=== PATIENT | male | born 1975 | race Caucasian/White ===

== ENCOUNTER → 2020-07-19 12:00 | Outpatient (CLI) | payer OTHER, SELFPAY ==
--- NOTE | ~2020-07-19 | MR_ITS ---
EXAMINATION: MR cervical spine wo con DATE: 07/19/2020 12:57 INDICATION: Cervical radiculopathy. TECHNIQUE: Magnetic resonance imaging (MRI) of the cervical spine was performed without intravenous c ontrast. Sequences included sagittal T2-weighted FSE, sagittal STIR FSE, sagittal T1-weighted FSE, ax ial MERGE, and axial T2-weighted FSE. COMPARISON: None FINDINGS: There is 5 degrees levocurvature of cervicothoracic spine. Vertebral body heights are lottie l. There is moderately decreased disc height at C6-C7. The spinal cord signal intensity is normal. Th e following disc levels are specifically discussed: C2-C3: The disc is bulging. There is mild left uncovertebral joint osteoarthritis. There is mild righ t and moderate left facet joint osteoarthritis. There is mild left neural foraminal stenosis. There i s no central canal stenosis. C3-C4: The disc is bulging. There is moderate right and mild left uncovertebral joint osteoarthritis. There is mild right and moderate left facet joint osteoarthritis. There is mild bilateral neural for aminal stenosis. There is mild central canal stenosis. C4-C5: The disc does not extend beyond the endplate margin. There is moderate left uncovertebral join t osteoarthritis. There is mild bilateral facet joint osteoarthritis. There is mild left neural zo inal stenosis. There is no central canal stenosis. C5-C6: The disc is bulging. There is mild bilateral uncovertebral joint osteoarthritis. There is mild bilateral facet joint osteoarthritis. There is mild bilateral neural foraminal stenosis. There is mi ld central canal stenosis. C6-C7: The disc is bulging. There is moderate right and severe left uncovertebral joint osteoarthriti s. There is mild bilateral facet joint osteoarthritis. There is mild right and moderate left neural f oraminal stenosis. There is mild central canal stenosis. C7-T1: The disc does not extend beyond the endplate margin. There is no uncovertebral joint osteoarth ritis. There is moderate right and severe left facet joint osteoarthritis. There is mild bilateral ne ural foraminal stenosis. There is no central canal stenosis. IMPRESSION: 1. Moderate cervical spondylosis. Reviewed, dictated and finalized at location A. OR [employer]
== END ==
PROVIDERS: Visit Provider Chiropractor
DX: M47.23 Other spondylosis with radiculopathy, cervicothoracic region (principal); M48.03 Spinal stenosis, cervicothoracic region
CPT/HCPCS: 72141

== ENCOUNTER 2022-11-12 08:07 | Emergency (ER) | payer OTHER, SELFPAY ==
--- NOTE | 2022-11-12 08:15 | ED.EXTPRO ---
HPI - Extremity Problem General Chief complaint: Extremity Problem,Nontraumatic Stated complaint: SWOLLEN AREA ON TOE Time Seen by Provider: 11/12/22 08:23 Source: patient and RN notes reviewed Mode of arrival: ambulatory Limitations: no limitations History of Present Illness HPI Narrative: 47-year-old male presents with concern for swelling on the 1st digit of the left foot. He reports noticing symptoms about a week ago. He was concern for a spider bite or infection. He reports the tip of his toe is very slightly tender and feels like ?it is asleep?. He denies injury or trauma. He reports low back pain, hip pain after recently starting taking a statin. He reports he has not been taking any anti-inflammatories because his blood pressures been high. MD Complaint: extremity swelling Related Data Home Medications Medication Instructions Recorded Confirmed losartan 50 mg tablet mg 11/12/22 methylphenidate HCl 20 mg biphasic mg PO 11/12/22 30-70 capsule,extended release rosuvastatin 5 mg tablet mg 11/12/22 venlafaxine 150 mg mg PO 11/12/22 capsule,extended release 24 hr Allergies Allergy/AdvReac Type Severity Reaction Status Date / Time Sulfa (Sulfonamide Allergy Unknown Rash Verified 11/12/22 08:17 Antibiotics) Review of Systems Review of Systems: CONSTITUTIONAL: Denies malaise, chills, sweats, or fever. EYES: Denies redness, or discharge. ENT: Denies rhinorrhea, congestion, swollen lips, swollen tongue CARDIOVASCULAR: Denies chest pain, palpitations, or edema. RESPIRATORY: Denies cough or dyspnea. GASTROINTESTINAL: Denies abdominal pain, nausea, vomiting SKIN: Reports redness and swelling of the 1st digit of the left foot MUSCULOSKELETAL: Reports joint pain NEUROLOGIC: Denies headache. All systems reviewed & are unremarkable except as noted in HPI and below PMFSH Social History Social History Smoking status: Never smoker Alcohol intake: current Comments At time of signature, agree with nursing past medical, surgical, social and family history. There is no relevant family history pertinent to the presenting complaint Exam Narrative: GENERAL: Well-appearing, well-nourished, and in no acute distress. HEAD: Normocephalic, atraumatic. EYES: PERRLA, conjunctivae clear, and EOMI. ENT: Mucous membranes moist. NECK: Supple. No lymphadenopathy CHEST: Clear to auscultation. No respiratory distress. HEART: Regular rate and rhythm. SKIN: Warm, dry. Tip of the 1st digit of the left foot is very mildly erythematous, without edema, no fluctuation, of very mild tenderness. No swelling, fluctuation, redness noted around the nail bed. The rest of the foot is unremarkable NEURO: Alert and oriented x3. PSYCH: Normal mood and affect Course Course Emergency Course: Discussed with patient that his exam is not concerning for infection, insect bite. His tingling might be related to his proximal joint pain. Advised to follow up with his primary care doctor Patient is aware of diagnosis, understands and agrees to treatment plan. Anticipatory guidance given. Patient agrees to follow-up as directed and is aware of reasons to seek care at the emergency department. Portions of this record may have been created with voice recognition software Level of Care: Express Care Visit Vital Signs Vital signs: Reviewed. Critical Care Time Critical Care Time Critical Care Time: No Discharge Plan Discharge Clinical Impression: Discoloration of skin Patient Disposition: Home, Self-Care Condition: Stable Instructions: Warm Compress or Soak (ED) Additional Instructions: Soak your foot and a mixture of warm water and Epsom salt or apple cider vinegar. If you notice swelling, redness, pain worsening you should return or see her primary for re-evaluation. At this time I am not concerned for infection or an insect bite. If the numbness sensation continues used follow-up with your primary care doctor for fu
[2022-11-12 08:17] VITALS: BP 146/110; PULSE 84; RESP 16; TEMP 36.7; O2SAT 100
== END 2022-11-12 08:42 | disposition home or self-care (01) ==
PROVIDERS: Emergency Provider Nurse Practitioner; PCP Family Medicine Sports Medicine
DX: L81.9 Disorder of pigmentation, unspecified (principal); E78.00 Pure hypercholesterolemia, unspecified; I10 Essential (primary) hypertension; F41.9 Anxiety disorder, unspecified; F98.8 Other specified behavioral and emotional disorders with onset usually occurring in childhood and adolescence
CPT/HCPCS: 99202; G0463

== ENCOUNTER 2023-07-21 10:13 | Emergency (ER) | payer OTHER, SELFPAY ==
[2023-07-21 10:21] VITALS: BP 120/91; PULSE 116; RESP 18; TEMP 36.4; O2SAT 100
--- NOTE | 2023-07-21 10:34 | ED.URI ---
HPI - URI/Sore Throat General Chief Complaint: Upper Respiratory Infection Stated Complaint: Sinus Infection Time Seen by Provider: 07/21/23 10:54 Source: patient and RN notes reviewed Mode of arrival: ambulatory Limitations: no limitations History of Present Illness HPI Narrative: 48-year-old male presents with concern for 5 day history of sinus congestion, drainage, chest congestion, chills. He reports he tried Sudafed today. He denies known sick contacts. He denies shortness of breath, fever MD elicited complaint: rhinorrhea and nasal congestion Related Data Home Medications Medication Instructions Recorded Confirmed methylphenidate HCl 20 mg biphasic 20 mg PO DAILY 11/12/22 07/21/23 30-70 capsule,extended release venlafaxine 150 mg 150 mg PO DAILY 11/12/22 07/21/23 capsule,extended release 24 hr Allergies Allergy/AdvReac Type Severity Reaction Status Date / Time Sulfa (Sulfonamide Allergy Intermediate Swelling Verified 07/21/23 10:47 Antibiotics) of Lip/Tongue/Throat Review of Systems Review of Systems: CONSTITUTIONAL: Denies malaise, chills. Denies sweats, or fever. EYES: Denies visual changes, redness, or discharge. ENT: Reports rhinorrhea, congestion, otalgia and sore throat. CARDIOVASCULAR: Denies chest pain, palpitations, or edema. RESPIRATORY: Reports occasion cough. Denies dyspnea. GASTROINTESTINAL: Denies abdominal pain, nausea, vomiting, diarrhea SKIN: Denies rash or itching. MUSCULOSKELETAL: Denies myalgia. NEUROLOGIC: Denies headache. All systems reviewed & are unremarkable except as noted in HPI and below PMFSH Social History Social History Smoking status: Never smoker Alcohol intake: current Comments At time of signature, agree with nursing past medical, surgical, social and family history. There is no relevant family history pertinent to the presenting complaint Exam Narrative: GENERAL: Nontoxic-appearing and in no acute distress. HEAD: Normocephalic EYES: PERRLA, conjunctivae clear ENT: Nares clear, clear discharge. Mucous membranes moist. TM pearly potts with dull light reflex bilaterally; no tragal tenderness. Oropharynx not erythematous without lesions. Tonsils not enlarged and without exudate, no drooling, no hoarseness, no trismus, uvula midline. NECK: Supple. No lymphadenopathy CHEST: Clear to auscultation, breath sounds equal. No wheezing, rhonchi, rales, or stridor. No respiratory distress, speaks in full sentences. HEART: Regular rate and rhythm. No murmur heard. SKIN: Warm, dry, no rash. NEURO: Alert and oriented x3. PSYCH: Normal mood and affect Course Course Emergency Course: Patient is aware of diagnosis, understands and agrees to treatment plan. Anticipatory guidance given. Patient agrees to follow-up as directed and is aware of reasons to seek care at the emergency department. Portions of this record may have been created with voice recognition software Level of Care: Express Care Visit Vital Signs Vital signs: Vital Signs Temperature 97.6 F 07/21/23 10:21 Pulse Rate 116 H 07/21/23 10:21 Respiratory Rate 18 07/21/23 10:21 Blood Pressure 120/91 H 07/21/23 10:21 Pulse Oximetry 100 07/21/23 10:21 Oxygen Delivery Room Air 07/21/23 10:21 Temperature 97.6 F 07/21/23 10:21 Pulse Rate 116 H 07/21/23 10:21 Respiratory Rate 18 07/21/23 10:21 Blood Pressure 120/91 H 07/21/23 10:21 Pulse Oximetry 100 07/21/23 10:21 Oxygen Delivery Room Air 07/21/23 10:21 Reviewed. MDM - URI/Sore Throat MDM Narrative Medical decision making narrative: Differential diagnosis considered: Blood virus, strep pharyngitis, allergic rhinitis, upper respiratory tract infection, sinusitis, rhinosinusitis, nasopharyngitis. viral pharyngitis, otitis media, otitis externa, pneumonia, bronchitis, viral cough syndrome, viral syndrome, and influenza. Exam findings show no acute concerns or changes; patient is non-toxic appearing
== END 2023-07-21 11:27 | disposition home or self-care (01) ==
PROVIDERS: Emergency Provider Nurse Practitioner; PCP Family Medicine Sports Medicine
DX: J06.9 Acute upper respiratory infection, unspecified (principal); Z20.822 Contact with and (suspected) exposure to COVID-19; E78.00 Pure hypercholesterolemia, unspecified; I10 Essential (primary) hypertension; F41.9 Anxiety disorder, unspecified; F98.8 Other specified behavioral and emotional disorders with onset usually occurring in childhood and adolescence
CPT/HCPCS: 87081; 87426; 87804; 87880; 99213; C9803; G0463

== ENCOUNTER 2023-07-27 08:07 | Emergency (ER) | payer OTHER, SELFPAY ==
[2023-07-27 08:18] VITALS: BP 137/99; PULSE 88; RESP 16; TEMP 36.9; O2SAT 100
--- NOTE | 2023-07-27 08:23 | ED.URI ---
HPI - URI/Sore Throat General Chief Complaint: Upper Respiratory Infection Stated Complaint: COLD/DRAINAGE Source: patient and RN notes reviewed Mode of arrival: ambulatory Limitations: no limitations History of Present Illness HPI Narrative: 48-year-old male presenting for complaint of sinus pressure and congestion, nasal drainage, and mild cough. Symptoms present for almost 2 weeks. He was seen 1 week ago, prescribed ipratropium nasal spray and steroid pack; tested neg for flu/covid. He states steroid may him feel hot so he stopped taking it. Denies change in symptoms. He denies shortness of breath, wheezing, nausea, vomiting, diarrhea, fevers or chills. MD elicited complaint: cough Related Data Home Medications Medication Instructions Recorded Confirmed methylphenidate HCl 20 mg biphasic 20 mg PO DAILY 11/12/22 07/21/23 30-70 capsule,extended release venlafaxine 150 mg 150 mg PO DAILY 11/12/22 07/21/23 capsule,extended release 24 hr Allergies Allergy/AdvReac Type Severity Reaction Status Date / Time Sulfa (Sulfonamide Allergy Intermediate Swelling Verified 07/21/23 10:47 Antibiotics) of Lip/Tongue/Throat Review of Systems Review of Systems: CONSTITUTIONAL: Denies malaise, chills, sweats, fever EYES: Denies visual changes, redness, or discharge ENT: Reports rhinorrhea, congestion, sinus pain, denies otalgia, sore throat CARDIOVASCULAR: Denies chest pain, palpitations, edema RESPIRATORY: Reports cough, post nasal drainage. Denies dyspnea GASTROINTESTINAL: Denies abdominal pain, nausea, vomiting, diarrhea SKIN: Denies rash or itching MUSCULOSKELETAL: Denies myalgia NEUROLOGIC: Denies headache [facility] Past Medical History Medical History (Updated 07/27/23 @ 08:36 by Agustina Matamoros APRN) No pertinent past medical history Social History Social History Smoking status: Never smoker Alcohol intake: current Exam Narrative: GENERAL: Mildly ill-appearing, nontoxic no acute distress. HEAD: Normocephalic EYES: PERRLA, conjunctivae clear ENT: Mucous membranes moist. TMs pearly potts with dull light reflex bilaterally; no tragal tenderness. Oropharynx mildly erythematous without lesions or exudate, tonsils and uvula absent. No drooling, no hoarseness, no trismus, uvula midline. No tripod positioning, muffled voice, soft palate or pharyngeal wall bulging NECK: Supple. No lymphadenopathy CHEST: Clear to auscultation, breath sounds equal. No wheezing, rhonchi, rales, or stridor. No respiratory distress, speaks in full sentences. HEART: Regular rate and rhythm. No murmur heard. SKIN: Warm, dry, no rash. NEURO: Alert and oriented x3. PSYCH: Normal mood and affect Course Course Emergency Course: Patient is aware of diagnosis, understands and agrees to treatment plan. Anticipatory guidance given. Patient agrees to follow-up as directed and is aware of reasons to seek care at the emergency department. Portions of this record may have been created with voice recognition software Level of Care: Express Care Visit Vital Signs Vital signs: Vital Signs Temperature 98.4 F 07/27/23 08:18 Pulse Rate 88 07/27/23 08:18 Respiratory Rate 16 07/27/23 08:18 Blood Pressure 137/99 H 07/27/23 08:18 Pulse Oximetry 100 07/27/23 08:18 Temperature 98.4 F 07/27/23 08:18 Pulse Rate 88 07/27/23 08:18 Respiratory Rate 16 07/27/23 08:18 Blood Pressure 137/99 H 07/27/23 08:18 Pulse Oximetry 100 07/27/23 08:18 reviewed MDM - URI/Sore Throat MDM Narrative Medical decision making narrative: Discussed physical exam findings consistent with sinusitis. Advised supportive measures and signs/symptoms to go to the ER. Pt is appropriate for outpt treatment and f/u. Differential Diagnosis Differential diagnosis: Likely upper respiratory infection, sinusitis, viral infection, bronchitis and pharyngitis Discharge Plan
== END 2023-07-27 08:35 | disposition home or self-care (01) ==
PROVIDERS: Emergency Provider Nurse Practitioner Family; PCP Family Medicine Sports Medicine
DX: J06.9 Acute upper respiratory infection, unspecified (principal)
CPT/HCPCS: 99213; G0463

== ENCOUNTER 2023-12-11 09:31 | Emergency (ER) | payer OTHER, SELFPAY ==
[2023-12-11 09:41] VITALS: BP 148/106; PULSE 88; RESP 16; TEMP 37.5; O2SAT 98
[2023-12-11 09:45] VITALS: BP 148/106; PULSE 88; RESP 16; TEMP 37.5; O2SAT 98
--- NOTE | 2023-12-11 09:59 | ED.URI ---
HPI - URI/Sore Throat General Chief Complaint: Upper Respiratory Infection Stated Complaint: SINUS CONGESTION Time Seen by Provider: 12/11/23 09:57 Source: patient and RN notes reviewed Mode of arrival: ambulatory Limitations: no limitations History of Present Illness HPI Narrative: 48-year-old male presents with concern for nasal congestion, rhinorrhea, cough, fatigue, low-grade fever that started yesterday. Reports he tried [id number] cold medicine without relief. Denies known sick contacts MD elicited complaint: cough and nasal congestion Related Data Home Medications Medication Instructions Recorded Confirmed methylphenidate HCl 20 mg biphasic 20 mg PO DAILY 11/12/22 12/11/23 30-70 capsule,extended release venlafaxine 150 mg 150 mg PO DAILY 11/12/22 12/11/23 capsule,extended release 24 hr amlodipine 5 mg tablet 5 mg PO DAILY 12/11/23 12/11/23 bupropion HCl 150 mg 24 hr tablet, 150 mg PO DAILY 12/11/23 12/11/23 extended release Allergies Allergy/AdvReac Type Severity Reaction Status Date / Time Sulfa (Sulfonamide Allergy Intermediate Swelling Verified 12/11/23 09:42 Antibiotics) of Lip/Tongue/Throat Review of Systems Review of Systems: CONSTITUTIONAL: Reports malaise, low-grade fever. Denies chills, sweats EYES: Denies visual changes, redness, or discharge. ENT: Reports rhinorrhea, congestion, sore throat. CARDIOVASCULAR: Denies chest pain, palpitations, or edema. RESPIRATORY: Reports cough. Denies dyspnea. GASTROINTESTINAL: Denies abdominal pain, nausea, vomiting, diarrhea SKIN: Denies rash or itching. MUSCULOSKELETAL: Denies myalgia. NEUROLOGIC: Denies headache. All systems reviewed & are unremarkable except as noted in HPI and below PMFSH Past Medical History Medical History (Updated 12/11/23 @ 10:33 by [place] Ahmadi NP) No pertinent past medical history Social History Social History Smoking status: Never smoker Alcohol intake: current Comments At time of signature, agree with nursing past medical, surgical, social and family history. There is no relevant family history pertinent to the presenting complaint Exam Narrative: GENERAL: Well-appearing, well-nourished, and in no acute distress. HEAD: Normocephalic EYES: PERRLA, conjunctivae clear ENT: Nares clear, turbinates edematous and erythematous, clear discharge. Mucous membranes moist. TM pearly potts with dull light reflex bilaterally; no tragal tenderness. Oropharynx not erythematous without lesions. Tonsils not enlarged and without exudate, no drooling, no hoarseness, no trismus, uvula midline. NECK: Supple. No lymphadenopathy CHEST: Clear to auscultation, breath sounds equal. No wheezing, rhonchi, rales, or stridor. No respiratory distress, speaks in full sentences. HEART: Regular rate and rhythm. No murmur heard. SKIN: Warm, dry, no rash. NEURO: Alert and oriented x3. PSYCH: Normal mood and affect Course Course Emergency Course: Patient is aware of diagnosis, understands and agrees to treatment plan. Anticipatory guidance given. Patient agrees to follow-up as directed and is aware of reasons to seek care at the emergency department. Portions of this record may have been created with voice recognition software Level of Care: Express Care Visit Vital Signs Vital signs: Vital Signs Temperature 99.5 F 12/11/23 09:41 Pulse Rate 88 12/11/23 09:41 Respiratory Rate 16 12/11/23 09:41 Blood Pressure 148/106 H 12/11/23 09:41 Pulse Oximetry 98 12/11/23 09:41 Temperature 99.5 F 12/11/23 09:45 Pulse Rate 88 12/11/23 09:45 Respiratory Rate 16 12/11/23 09:45 Blood Pressure 148/106 H 12/11/23 09:45 Pulse Oximetry 98 12/11/23 09:45 Reviewed. MDM - URI/Sore Throat MDM Narrative Medical decision making narrative: Differential diagnosis considered: Blood virus, strep pharyngitis, allergic rhinitis, upper respirato
== END 2023-12-11 10:37 | disposition home or self-care (01) ==
PROVIDERS: Emergency Provider Nurse Practitioner; PCP Family Medicine Sports Medicine
DX: J06.9 Acute upper respiratory infection, unspecified (principal); Z20.822 Contact with and (suspected) exposure to COVID-19
CPT/HCPCS: 87426; 87804; 99213; G0463

== ENCOUNTER 2025-03-12 07:58 | Outpatient (CLI) | payer OTHER, SELFPAY ==
--- NOTE | ~2025-03-12 | MR_ITS ---
MRI of the right foot CLINICAL HISTORY: Metatarsalgia TECHNIQUE: Axial proton-density and proton-density fat-sat images, coronal T1-weighted and proton-den sity fat-sat images, and sagittal T1-weighted and STIR images were performed. FINDINGS: No acute fracture or dislocation/subluxation seen. There is moderate degenerative change of the first MTP joint and sesamoid first metatarsal articulations. There is a reactive marrow edema an d subchondral cystic change. Remaining joint spaces are intact. No joint effusion evident. No Bello's neuroma or intermetatarsal bursitis evident. Intrinsic musculature of the foot appears un remarkable. Plantar fascia intact. Flexor and extensor tendons are intact. No soft tissue mass or flu id collection seen. 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 Reviewed, dictated and finalized at location .
== END 2025-03-12 07:59 | disposition home or self-care (01) ==
PROVIDERS: PCP Podiatrist Foot & Ankle Surgery; Visit Provider Podiatrist Foot & Ankle Surgery
DX: M77.41 Metatarsalgia, right foot (principal)
CPT/HCPCS: 73718